=== PATIENT | female | born 1950 | race African-American/Black ===

== ENCOUNTER 2017-01-10 08:33 | Day surgery (SDC) | payer OTHER ==
[2017-01-10] MEDS ORDERED: TETRACAINE 0.5% OPHTH 1 DOSE AFFEYE ONE ×2 (09:32→09:51)
[2017-01-10] MEDS ORDERED: ALPHAGAN-P OPHTH 1 DOSE AFFEYE ONE (09:34)
[2017-01-10 11:47] VITALS: BP 185/96
== END 2017-01-10 10:05 | disposition home or self-care (01) ==
LOC: SURG1 08:33
PROVIDERS: ATTEND Ophthalmology
PROC: 08QD3ZZ Repair Left Iris, Percutaneous Approach (ICD-10-PCS; principal; 2017-01-10 12:00)
DX: H40.10X1 Unspecified open-angle glaucoma, mild stage (principal)
CPT/HCPCS: 65855